=== PATIENT | male | born 1995 | race Caucasian/White ===

== ENCOUNTER 2024-09-27 20:36 | Emergency (ER) | payer MEDICAID ==
[~2024-09-27] VITALS: Ht 167.6 cm; Wt 85.7 kg
[2024-09-27] MEDS ORDERED: AMOX-430 PO (21:24)
[2024-09-27 21:29] VITALS: BP 132/77; TEMP 98; O2SAT 98
== END 2024-09-27 22:11 | disposition home or self-care (01) ==
LOC: ER 20:42
DX: S31.139A Puncture wound of abdominal wall without foreign body, unspecified quadrant without penetration into peritoneal cavity, initial encounter (principal); W54.0XXA Bitten by dog, initial encounter; Y93.89 Activity, other specified; Y92.89 Other specified places as the place of occurrence of the external cause; Y99.8 Other external cause status